=== PATIENT | female | born 1980 | race Caucasian/White ===

== ENCOUNTER → 2022-06-22 | Outpatient (REF) | payer OTHER | LOC: M PLALAB 12:26 | PROVIDERS: ATTEND Advanced Practice Midwife | DX: Z12.4 Encounter for screening for malignant neoplasm of cervix (principal) | CPT/HCPCS: 87624; G0123 ==

== ENCOUNTER → 2024-09-10 | Outpatient (REF) | payer OTHER ==
[2024-09-12 14:22] LABS: HPV APTIMA Detected (Not Detected)
== END ==
LOC: M PLALAB 10:15
PROVIDERS: ATTEND Advanced Practice Midwife
DX: Z12.4 Encounter for screening for malignant neoplasm of cervix (principal)
CPT/HCPCS: 87624; G0123